=== PATIENT | female | born 1995 | race African-American/Black ===

== ENCOUNTER 2022-03-23 14:50 | Emergency (ER) | payer BC | END 2022-03-23 15:45 | disposition left against medical advice (07) | LOC: LL.ED 14:50 | DX: Z34.90 Encounter for supervision of normal pregnancy, unspecified, unspecified trimester (principal); Z53.29 Procedure and treatment not carried out because of patient's decision for other reasons | CPT/HCPCS: 99283 ==

== ENCOUNTER 2023-04-03 09:02 | Emergency (ER) | payer BC ==
[2023-04-03] MEDS ORDERED: Naloxone 0.4 MG/ML SDV IVPUSH PRN (09:34)
[2023-04-03 09:46] LABS: BASOPHILS ABSOLUTE AUTO 0.02 K/uL (0.00-0.20); BASOPHILS PERCENT AUTO 0.2 % (0.0-2.0); EOSINOPHILS ABSOLUTE AUTO 0.01 K/uL (0.00-0.50); EOSINOPHILS PERCENT AUTO 0.1 % (0.0-5.0); HEMATOCRIT 39.7 % (34.0-46.0); HEMOGLOBIN 13.2 g/dL (11.7-15.5); LYMPHOCYTES PERCENT AUTO 16.5 % (10.0-50.0); MEAN CORPUSCULAR HEMOGLOBIN 28.8 pg (28.2-33.3); MEAN CORPUSCULAR HGB CONC 33.2 g/dL (31.7-36.0); MEAN CORPUSCULAR VOLUME 86.5 fL (84.0-98.0); MONOCYTES ABSOLUTE AUTO 0.86 K/uL (0.00-1.00); MONOCYTES PERCENT AUTO 7.9 % (2.0-14.0); NEUTROPHILS ABSOLUTE AUTO 8.23 K/uL (1.40-7.00); NEUTROPHILS PERCENT AUTO 75.3 % (45.0-80.0); PLATELET COUNT,PLT 161 K/uL (150-350); RED BLOOD CELL COUNT 4.59 M/uL (3.77-5.09); RED CELL DISTRIBUTION WIDTH 13.4 % (11.2-14.1); WHITE BLOOD CELL COUNT,WBC 10.9 K/uL (4.0-10.2)
[2023-04-03] MEDS: Sodium Chloride 0.9% 1,000 ML IV SCH (09:55)
[2023-04-03] MEDS: Ondansetron 4 MG/2 ML SDV IVPUSH ONE (09:55)
[2023-04-03] MEDS: fentaNYL 50 MCG/ML SDV IVPUSH ONE ×2 (09:55→12:41)
[2023-04-03 10:21] LABS: INR 1.1 (0.9-1.1); PROTHROMBIN TIME 10.5 SEC (9.0-11.1)
[2023-04-03 10:29] LABS: LACTIC ACID 1.1 mmol/L (0.4-2.0)
[2023-04-03 10:35] LABS: ALANINE AMINOTRANSFERASE,ALT 23 U/L (12-78); ALBUMIN 3.4 g/dL (3.4-5.0); ALKALINE PHOSPHATASE 80 IU/L (46-116); ANION GAP 9.3 meq/L (7-15); ASPARTATE AMNIOTRANSFERASE,AST 18 U/L (15-37); BILIRUBIN TOTAL 0.8 mg/dL (0.2-1.0); BLOOD UREA NITROGEN,BUN 10 mg/dL (7-18); CALCIUM 9.1 mg/dL (8.5-10.1); CARBON DIOXIDE,CO2 27.7 mmol/L (21.0-32.0); CHLORIDE,CL 103 mmol/L (98-107); CREATININE 0.74 mg/dL (0.51-1.17); GLUCOSE RANDOM 108 mg/dL (70-99); POTASSIUM,K 3.7 mmol/L (3.5-5.1); PROTEIN TOTAL,TP 7.9 g/dL (6.4-8.2); SODIUM,NA 140 mmol/L (136-145)
[2023-04-03 10:42] LABS: ESTIMATED GFR 112 mL/min (>=60)
[2023-04-03 11:21] LABS: APPEARANCE,URINE SLIGHTLY CLOUDY; BILIRUBIN,URINE NEGATIVE (NEGATIVE); COLOR,URINE YELLOW; GLUCOSE,URINE NEGATIVE (NEGATIVE); KETONES,URINE NEGATIVE (NEGATIVE); LEUKOCYTE ESTERASE,URINE NEGATIVE (NEGATIVE); NITRITE,URINE NEGATIVE (NEGATIVE); OCCULT BLOOD,URINE SMALL (NEGATIVE); PH,URINE 7.5 (5.0-9.0); PROTEIN,URINE 30 mg/dL (NEGATIVE); UROBILINOGEN,URINE 0.2 E.U./dL (0.2-1.0)
[2023-04-03 11:29] LABS: BACTERIA,URINE MODERATE /HPF (NONE TO FEW); EPITHELIAL CELLS,URINE MANY /LPF; RBC,URINE 0-5 /HPF
[2023-04-03] MEDS: Sodium Chloride 0.9% 10 ML Syringe FLUSH PRN (12:43)
[2023-04-03] MEDS: Phenazopyridine 95 MG Tab PO SCH (14:17)
== END 2023-04-03 13:45 ==
LOC: LL.ED 09:02
DX: K35.30 Acute appendicitis with localized peritonitis, without perforation or gangrene (principal)
CPT/HCPCS: 74176; 80053; 81001; 81025; 83605; 85025; 85610; 96361; 96374; 96375; 96376; 99284; 99285-25; J2405; J3010; J3490; J7030

== ENCOUNTER 2023-04-22 15:17 | Emergency (ER) | payer BC ==
[2023-04-22 15:31] LABS: APPEARANCE,URINE SLIGHTLY CLOUDY; BILIRUBIN,URINE NEGATIVE (NEGATIVE); COLOR,URINE YELLOW; GLUCOSE,URINE NEGATIVE (NEGATIVE); KETONES,URINE NEGATIVE (NEGATIVE); LEUKOCYTE ESTERASE,URINE NEGATIVE (NEGATIVE); NITRITE,URINE NEGATIVE (NEGATIVE); OCCULT BLOOD,URINE NEGATIVE (NEGATIVE); PROTEIN,URINE NEGATIVE (NEGATIVE); UROBILINOGEN,URINE 0.2 E.U./dL (0.2-1.0)
[2023-04-24 14:46] LABS: C.TRACHOMATIS BY TMA Negative (Negative); N.GONORRHOEAE BY TMA Negative (Negative); SOURCE URINE
== END 2023-04-22 16:50 | disposition home or self-care (01) ==
LOC: LL.ED 15:17
DX: L30.4 Erythema intertrigo (principal)
CPT/HCPCS: 81003; 87491; 87591; 99283

== ENCOUNTER 2024-04-10 09:14 | Emergency (ER) | payer BC ==
[2024-04-10] MEDS: Take Home: Amoxicillin 500 MG, 6 Cap Pack PO ONE (10:35)
== END 2024-04-10 10:44 | disposition home or self-care (01) ==
LOC: LL.ED 09:14
DX: J02.0 Streptococcal pharyngitis (principal); Z90.49 Acquired absence of other specified parts of digestive tract
CPT/HCPCS: 87428-QW; 87651-QW; 99283; A9270-GY